=== PATIENT | male | born 1975 | race Caucasian/White ===

== ENCOUNTER 2022-05-28 05:33 | Emergency (ER) | payer BC ==
[~2022-05-28] VITALS: Ht 185.4 cm; Wt 97.7 kg
[2022-05-28 05:47] VITALS: TEMP 98.1
[2022-05-28] MEDS ORDERED: ZOFRAN ODT4 MG PO (06:47)
[2022-05-28] MEDS ORDERED: NORCO 325 MG-51 TAB PO (06:47)
[2022-05-28 06:57] VITALS: BP 150/93; PULSE 75
== END 2022-05-28 06:57 | disposition home or self-care (01) ==
LOC: COL.ER 05:33
DX: S42.031A Displaced fracture of lateral end of right clavicle, initial encounter for closed fracture (principal); W01.0XXA Fall on same level from slipping, tripping and stumbling without subsequent striking against object, initial encounter